=== PATIENT | female | born 1945 | race Caucasian/White ===

== ENCOUNTER 2020-12-20 06:32 | Day surgery (SDC) | payer OTHER ==
[~2020-12-20 06:32] MED LIST: ENALAPRIL MALEAT5 MG PO
[2020-12-20] MEDS ORDERED: PERCOCET 5-3251 EACH PO (14:12)
== END 2020-12-20 17:30 | disposition home or self-care (01) ==
LOC: CIR.AMB 06:32
PROVIDERS: ATTEND Surgery
DX: K62.82 Dysplasia of anus (principal); K64.8 Other hemorrhoids; K64.4 Residual hemorrhoidal skin tags; Z20.822 Contact with and (suspected) exposure to COVID-19

== ENCOUNTER 2020-12-28 07:34 | Emergency (ER) | payer OTHER ==
[~2020-12-28] VITALS: Ht 162.6 cm; Wt 68.0 kg
[~2020-12-28 07:34] MED LIST changes: +PERCOCET 5-3251 EACH PO
== END 2020-12-28 11:06 | disposition home or self-care (01) ==
LOC: ER 07:34
DX: K91.841 Postprocedural hemorrhage of a digestive system organ or structure following other procedure (principal); K62.5 Hemorrhage of anus and rectum

== ENCOUNTER 2022-10-27 07:08 | Day surgery (SDC) | payer OTHER ==
[~2022-10-27] VITALS: Ht 162.6 cm; Wt 69.9 kg
[~2022-10-27 07:08] MED LIST changes: +MULTIPLE VITAM1 EAC2 PO; +ZOCOR20 MG PO
[2022-10-27] MEDS ORDERED: IBU600 MG PO (12:35)
[2022-10-27] MEDS ORDERED: CIPROFLOXACIN500 MG PO (12:37)
[2022-10-27] MEDS ORDERED: CIPRO500 MG PO (12:38)
== END 2022-10-27 17:30 | disposition home or self-care (01) ==
LOC: CIR.AMB 07:08
PROVIDERS: ATTEND Obstetrics & Gynecology Gynecology
DX: N81.12 Cystocele, lateral (principal); Z20.822 Contact with and (suspected) exposure to COVID-19; N81.5 Vaginal enterocele; I10 Essential (primary) hypertension

== ENCOUNTER 2022-12-01 08:55 | Outpatient (CLI) | payer OTHER ==
[~2022-12-01 08:55] MED LIST changes: +CIPRO500 MG PO; +CIPROFLOXACIN500 MG PO; +IBU600 MG PO
== END 2022-12-01 08:59 | disposition home or self-care (01) ==
LOC: SONOGRAMA 08:55
PROVIDERS: ATTEND Pathology Anatomic Pathology & Clinical Pathology
DX: D44.0 Neoplasm of uncertain behavior of thyroid gland (principal); E07.9 Disorder of thyroid, unspecified

== ENCOUNTER 2023-03-30 05:00 | Inpatient (IN) | payer OTHER ==
[~2023-03-30] VITALS: Ht 163.8 cm; Wt 73.5 kg
[2023-03-31] MEDS ORDERED: PANTOPRAZOLE SO40 MG (08:31)
[2023-03-31] MEDS ORDERED: FAMOTIDINE40 MG (08:31)
== END 2023-03-31 12:46 | disposition home or self-care (01) | DRG 627 ==
LOC: CIR.AMB 05:00 → SURG 13:49 → SURH 13:49 → SURG 16:14
PROVIDERS: ADMIT Otolaryngology; ATTEND Otolaryngology
PROC: 0GTG0ZZ Resection of Left Thyroid Gland Lobe, Open Approach (ICD-10-PCS; principal; 2023-03-30 07:00)
DX: E04.2 Nontoxic multinodular goiter (principal); E06.3 Autoimmune thyroiditis; Z20.822 Contact with and (suspected) exposure to COVID-19